=== PATIENT | male | born 1955 | race Caucasian/White ===

== ENCOUNTER 2021-05-06 19:20 | Inpatient (IN) | payer OTHER, SELFPAY ==
[~2021-05-06] VITALS: Ht 182.9 cm; Wt 73.0 kg
[2021-05-06 19:25] VITALS: BP_SYST 119
--- NOTE | 2021-05-06 20:00 | NUR ---
Placed in room 7 . Placed on cardiac nurse, blood pressure machine and pulse oximeter. To gown for exam. Side rails up. Report given to Dunia MOY.
--- NOTE | 2021-05-06 20:10 | NUR ---
PT BIB [facility] FOR COMPLAINSTS OF SOB X1 WEEK. PT WAS LIFTING HEAVY OBJECTS ONE WEEK AGO AND HAD AN EPISODE OF SOB AND IT HASNT SUBSIDED YET. PT IS ON 15L NRB NOW AND SATING AT 95%. PT I TACHYCARDIC AT 120BPM. PT HAS NOT RECIEVED A VACCINE OR A COVID TEST. PT STATES NO CP OR FEVERS FOR THE PAST WEEK. A&OX4.
--- NOTE | 2021-05-06 20:15 | NUR ---
ER at bedside examining patient.
[2021-05-06 20:19] LABS: BASOPHILS % (AUTO) 0.1 % (0.0-2.0); EOSINOPHILS # (AUTO) 0.2 K/uL (0.0-0.4); EOSINOPHILS % (AUTO) 1.8 % (0.0-4.0); HEMATOCRIT 40.1 % (36-54); LYMPHOCYTES # (AUTO) 0.3 K/uL (1.0-5.5); LYMPHOCYTES % (AUTO) 2.8 % (20.5-51.5); MEAN CORPUSCULAR HEMOGLOBIN 31 pg (27-31); MEAN CORPUSCULAR HGB CONC 35 % (32-36); MEAN CORPUSCULAR VOLUME 88 fL (79.0-98.0); MONOCYTES # (AUTO) 0.6 K/uL (0.0-1.0); MONOCYTES % (AUTO) 5.7 % (1.7-9.3); NEUTROPHILS # (AUTO) 9.8 K/uL (1.8-7.7); NEUTROPHILS % (AUTO) 89.6 % (40.0-70.0); PLATELET COUNT (AUTO) 528 K/uL (130-430); RED BLOOD CELL COUNT(AUTO) 4.55 MIL/uL (4.2-6.2); RED CELL DISTRIBUTION WIDTH 13.3 % (9.0-15.0)
[2021-05-06] MEDS ORDERED: AZITHROMYCIN 500 MG in NS 250 ML IV ONE (20:30)
[2021-05-06] MEDS ORDERED: NACL 0.9% 1,000 ML IV ONE (20:30)
[2021-05-06] MEDS ORDERED: cefTRIAXone 1 GM IVPB PREMIX 50 ML IV ONE (20:30)
[2021-05-06] MEDS ORDERED: AZITHROMYCIN 500 MG/VIAL (ZITHROMAX) IV ONE (20:36)
--- NOTE | 2021-05-06 20:45 | NUR ---
# 20 gauge angiocath placed to R FOREARM. Use of asceptic technique. Opsite placed over site. Blood return noted. Blood for lab drawn from site. Flushed with 10 cc of normal saline. No evidence of infiltration noted. Patient tolerated well.
[2021-05-06 20:50] LABS: CALCIUM 8.8 mg/dL (8.4-11.0); CREATININE 1.05 mg/dL (0.55-1.30); POTASSIUM 4.3 mmol/L (3.5-5.1)
[2021-05-06 20:56] LABS: ALBUMIN 2.2 g/dL (3.4-4.8); TOTAL BILIRUBIN 0.8 mg/dL (0.0-1.0)
[2021-05-06 21:02] LABS: PROTHROMBIN TIME 10.6 SECS (9.5-12.5)
[2021-05-06 21:15] LABS: C-REACTIVE PROTEIN QUANT 19.6 mg/dL (0-0.5)
[2021-05-06] MEDS ORDERED: DEXAMETHASONE SOD PHOSPHATE 4 MG/ML VIAL IVP ONE (21:15)
[2021-05-06] MEDS ORDERED: DEXAMETHASONE SOD PHOSPHATE 4 MG/ML VIAL ONE (21:28)
[2021-05-06] MEDS ORDERED: ENOXAPARIN SODIUM 60 MG/0.6 ML SYRINGE SUBCUT ONE (21:45)
[2021-05-06 22:36] LABS: FIBRINOGEN > 1000 mg/dL (200-400)
--- NOTE | 2021-05-06 22:55 | NUR ---
PTS MED REC DONE PTS IS FULL CODE. PTS BELONGINGS LIST COMPLETE
[2021-05-06] MEDS ORDERED: HYDROcodone/ACETAMIN 10-325 MG TAB PO PRN (23:00)
[2021-05-06] MEDS ORDERED: HYDROcodone/ACETAMIN 5-325 MG TAB (NORCO/ VICODIN) PO PRN (23:00)
[2021-05-06] MEDS ORDERED: NALOXONE HCL 0.4 MG/ML AMP (NARCAN) IVP PRN ×2 (23:00)
[2021-05-06] MEDS ORDERED: LORazepam 2 MG/ML VIAL IVP PRN (23:00)
[2021-05-06] MEDS ORDERED: ONDANSETRON HCL 4 MG/2 ML VIAL IVP PRN (23:00)
[2021-05-06] MEDS: D5/0.45 NS 1,000 ML IV SCH (23:29)
[2021-05-06] MEDS: DEXAMETHASONE SOD PHOSPHATE 10 MG/ML VIAL IVP SCH (23:30)
--- NOTE | 2021-05-07 00:30 | NUR ---
PT IS RESTING CALMLY IN BED. NO COMPLAINTS AT THIS TIME
--- NOTE | 2021-05-07 03:58 | NUR ---
PT IS AWARE OF THE SITUATION AND THE REASON FOR HIS HOLD IN THE ER. PT IS COMFORTBALE AND CALM AT THIS TIME.
--- NOTE | 2021-05-07 04:30 | NUR ---
pt awake and requested food. pt given a meal tray
[2021-05-07 04:35] LABS: BILIRUBIN,URINE NEGATIVE (NEGATIVE); BLOOD, URINE 1+ (NEGATIVE); CLARITY/URINE SL CLOUDY (CLEAR); COLOR,URINE YELLOW (YELLOW); GLUCOSE,URINE 2+ (NEGATIVE); KETONES,URINE NEGATIVE (NEGATIVE); LEUKOCYTE ESTERASE ,URINE NEGATIVE (NEGATIVE); NITRITE, URINE POSITIVE (NEGATIVE); PH,URINE 5.5 (5.0-8.0); PROTEIN URINE TRACE (NEGATIVE)
[2021-05-07 05:12] LABS: BACTERIA,URINE MANY /HPF (None Seen)
[2021-05-07 06:49] LABS: BASOPHILS % (AUTO) 0.2 % (0.0-2.0); EOSINOPHILS % (AUTO) 0.1 % (0.0-4.0); HEMATOCRIT 38.4 % (36-54); HEMOGLOBIN 13.3 g/dL (14.0-18.0); LYMPHOCYTES # (AUTO) 0.2 K/uL (1.0-5.5); LYMPHOCYTES % (AUTO) 3.3 % (20.5-51.5); MEAN CORPUSCULAR HEMOGLOBIN 31 pg (27-31); MEAN CORPUSCULAR HGB CONC 35 % (32-36); MEAN CORPUSCULAR VOLUME 89 fL (79.0-98.0); MONOCYTES # (AUTO) 0.2 K/uL (0.0-1.0); MONOCYTES % (AUTO) 2.7 % (1.7-9.3); NEUTROPHILS % (AUTO) 93.7 % (40.0-70.0); PLATELET COUNT (AUTO) 439 K/uL (130-430); RED BLOOD CELL COUNT(AUTO) 4.34 MIL/uL (4.2-6.2); RED CELL DISTRIBUTION WIDTH 13.5 % (9.0-15.0); WHITE BLOOD COUNT (AUTO) 6.4 K/uL (4.8-10.8)
--- NOTE | 2021-05-07 07:42 | NUR ---
Pt resting in bed. No signs of distress noted.02 sat 97% on 8L mask. Respirations equal and symmetrical.
[2021-05-07] MEDS: D5/0.45 NS 1,000 ML IV SCH ×2 (09:45→19:00)
--- NOTE | 2021-05-07 11:46 | NUR ---
Pt requesting urinal. No distress noted.
--- NOTE | 2021-05-07 12:11 | NUR ---
Pt resting in bed requesting a phone product safety consultant. No signs of distress noted.
--- NOTE | 2021-05-07 12:11 | NUR ---
Pt voided 250 ml kennedi color urine.
[2021-05-07] MEDS ORDERED: ENOXAPARIN SODIUM 40 MG/0.4 ML SYRINGE SUBCUT ONE (14:00)
[2021-05-07] MEDS ORDERED: IOHEXOL 350 mgI/mL, 150 ML INFUS..BTL IV ONE (14:55)
--- NOTE | 2021-05-07 15:04 | NUR ---
Pt taken to CT in stable condition. Pt on 12L mask, A&O no distress noted.
[2021-05-07 15:55] VITALS: BP_SYST 139
--- NOTE | 2021-05-07 15:55 | NUR ---
Patient will be admitted to care of Admitted to tele unit. Will go to room 125A. Belongings list completed. Complete and up to date summary report printed. SBAR report given at bedside to Shanice with opportunity for questions.
--- NOTE | 2021-05-07 16:02 | NUR ---
CONSULT ID PNEUMONIA DR CLARKE [phone] DR YEN EDGE GLUE MACHINE TENDER S/W [facility] OFFICE
--- NOTE | 2021-05-07 17:12 | NUR ---
dr london s/w with Dr Shakila MD asked about patient . stated she will not be able to see patient today as she is busy in the other hospital. asked thermospray operator to call primary to start treatment of Remdesivir
[2021-05-07 17:56] VITALS: BP_SYST 139
[2021-05-07 20:00] VITALS: BP_SYST 135
[2021-05-07] MEDS: AZITHROMYCIN 500 MG in NS 250 ML IV SCH (20:47)
--- NOTE | 2021-05-07 20:47 | NUR ---
SCHEDULED IV ANTIBIOTIC STARTED. IV SITE IN RFA IS WITHOUT ANY SIGNS OF INFILTRATION.
[2021-05-07] MEDS: cefTRIAXone 1 GM IVPB PREMIX 50 ML IV SCH (22:28)
[2021-05-07] MEDS: DEXAMETHASONE SOD PHOSPHATE 10 MG/ML VIAL IVP SCH (22:29)
[2021-05-08] VITALS: BP_SYST 126
[2021-05-08] MEDS: D5/0.45 NS 1,000 ML IV SCH ×3 (03:54→23:03)
--- NOTE | 2021-05-08 06:33 | NUR ---
PT IS RESTING QUIETLY IN BED WITHOUT ANY ACUTE DISTRESS NOTED. ALL PT'S NEEDS WERE ATTENDED TO. WILL ENDORSE TO DAY SHIFT NURSE.
[2021-05-08 06:51] LABS: BASOPHILS % (AUTO) 0.2 % (0.0-2.0); HEMATOCRIT 34.8 % (36-54); HEMOGLOBIN 11.9 g/dL (14.0-18.0); LYMPHOCYTES # (AUTO) 0.3 K/uL (1.0-5.5); LYMPHOCYTES % (AUTO) 2.3 % (20.5-51.5); MEAN CORPUSCULAR HEMOGLOBIN 30 pg (27-31); MEAN CORPUSCULAR HGB CONC 34 % (32-36); MEAN CORPUSCULAR VOLUME 88 fL (79.0-98.0); MONOCYTES # (AUTO) 0.4 K/uL (0.0-1.0); MONOCYTES % (AUTO) 3.1 % (1.7-9.3); NEUTROPHILS # (AUTO) 12.5 K/uL (1.8-7.7); NEUTROPHILS % (AUTO) 94.4 % (40.0-70.0); PLATELET COUNT (AUTO) 484 K/uL (130-430); RED BLOOD CELL COUNT(AUTO) 3.94 MIL/uL (4.2-6.2); RED CELL DISTRIBUTION WIDTH 13.5 % (9.0-15.0); WHITE BLOOD COUNT (AUTO) 13.2 K/uL (4.8-10.8)
--- NOTE | 2021-05-08 07:02 | NUR ---
DR. KAISER HERE MAKING ROUNDS. HE SPOKE WITH YAMILET IN THE LAB REGARDING CANCELLED HIV RAPID SCREEN.
[2021-05-08 07:33] LABS: C-REACTIVE PROTEIN QUANT 8.3 mg/dL (0-0.5); CALCIUM 8.9 mg/dL (8.4-11.0); CREATININE 0.73 mg/dL (0.55-1.30); POTASSIUM 4.4 mmol/L (3.5-5.1)
[2021-05-08 08:00] VITALS: BP_SYST 142
--- NOTE | 2021-05-08 08:00 | NUR ---
OPENING NOTES AWAKE, ALERT AND ORIENTED. DENIES ANY PAIN. ON 12 LITERS OF OXYGEN VIA SIMPLE MASK. NO SIGN OF DISTRESS. IV FLUIDS INFUSING WELL. ON BEDREST, PATIENT SAID HIS LEGS FEEL WEAK. SERVED WITH BREAKFAST. FALL AND SAFETY CHECKS IN PLACE. CALL LIGHT WITHIN REACH. WILL MONITOR.
[2021-05-08] MEDS: ENOXAPARIN SODIUM 40 MG/0.4 ML SYRINGE SUBCUT SCH (08:14)
--- NOTE | 2021-05-08 10:02 | NUR ---
Nutrition Update Travis Scale 16 noted. Pt admitted for pneumonia. Diet: cardiac BMI: 21.7 kg/m2 RD to follow per nutrition care standards.
[2021-05-08 11:03] LABS: ERYTHROCYTE SEDIMENTATION RATE 97 MM/HR (0-15)
--- NOTE | 2021-05-08 11:15 | NUR ---
ROUNDS RESTING. STILL ON 12 LITERS OF SIMPLE MASK. NO SIGN OF DISTRESS. FALL AND SAFETY CHECKS DONE. CALL LIGHT WITHIN REACH. WILL MONITOR.
[2021-05-08 12:06] VITALS: BP_SYST 126
--- NOTE | 2021-05-08 14:00 | NUR ---
ROUNDS RESTING. AWARE THAT PCR AND HIV RESULTS ARE STILL PENDING.
[2021-05-08 16:15] VITALS: BP_SYST 145
--- NOTE | 2021-05-08 18:33 | NUR ---
CLOSING NOTES RESTING. NO SIGN OF DISTRESS. ALL NEEDS MET. FALL AND SAFETY CHECKS DONE. CALL LIGHT WITHIN REACH. WILL ENDORSE TO NIGHT NURSE.
--- NOTE | 2021-05-08 19:02 | NUR ---
OPENING NOTES PATIENT RESTING, NO SIGNS OF ACUTE RESPIRATORY DISTRESS NOTED. CALL LIGHT WITHIN REACH, BED ALARM REFUSED, PATIENT DEMONSTRATES PROPER CALL LIGHT USAGE AND BED AT LOWEST POSITION, BED LOCKED. PLAN OF CARE DISCUSSED WITH PATIENT. URINAL EMPTIED AND AT BEDSIDE. SAFETY, RESPIRATORY, ASPIRATION, FALL, AND ISOLATION PRECAUTIONS IN PLACE. WILL CONTINUE TO MONITOR.
[2021-05-08 20:00] VITALS: BP_SYST 119
[2021-05-08] MEDS: cefTRIAXone 1 GM IVPB PREMIX 50 ML IV SCH (22:02)
[2021-05-08] MEDS: AZITHROMYCIN 500 MG in NS 250 ML IV SCH (23:02)
[2021-05-08] MEDS: DEXAMETHASONE SOD PHOSPHATE 10 MG/ML VIAL IVP SCH (23:03)
[2021-05-09 01:30] VITALS: BP_SYST 128
--- NOTE | 2021-05-09 03:59 | NUR ---
PATIENT RESTING, EYES CLOSED, NO SIGNS OF RESPIRATORY DISTRESS NOTED. WILL CONTINUE TO MONITOR.
--- NOTE | 2021-05-09 07:03 | NUR ---
CLOSING NOTES PATIENT RESTING, NO SIGNS OF ACUTE RESPIRATORY DISTRESS NOTED. CALL LIGHT WITHIN REACH, BED ALARM REFUSED, PATIENT DEMONSTRATED PROPER CALL LIGHT USAGE AND BED AT LOWEST POSITION, BED LOCKED. URINAL EMPTIED. SAFETY, RESPIRATORY, ASPIRATION, FALL, AND ISOLATION PRECAUTIONS IN PLACE THROUGHOUT SHIFT. ALL NEEDS MET THROUGHOUT SHIFT. WILL ENDORSE CARE TO ONCOMING SHIFT.
[2021-05-09 07:06] LABS: BASOPHILS % (AUTO) 0.2 % (0.0-2.0); EOSINOPHILS % (AUTO) 0.1 % (0.0-4.0); HEMOGLOBIN 12.7 g/dL (14.0-18.0); LYMPHOCYTES # (AUTO) 0.2 K/uL (1.0-5.5); LYMPHOCYTES % (AUTO) 2.5 % (20.5-51.5); MEAN CORPUSCULAR HEMOGLOBIN 30 pg (27-31); MEAN CORPUSCULAR HGB CONC 34 % (32-36); MEAN CORPUSCULAR VOLUME 89 fL (79.0-98.0); MONOCYTES # (AUTO) 0.3 K/uL (0.0-1.0); MONOCYTES % (AUTO) 2.7 % (1.7-9.3); NEUTROPHILS # (AUTO) 9.2 K/uL (1.8-7.7); NEUTROPHILS % (AUTO) 94.5 % (40.0-70.0); PLATELET COUNT (AUTO) 522 K/uL (130-430); RED BLOOD CELL COUNT(AUTO) 4.17 MIL/uL (4.2-6.2); RED CELL DISTRIBUTION WIDTH 13.3 % (9.0-15.0); WHITE BLOOD COUNT (AUTO) 9.7 K/uL (4.8-10.8)
[2021-05-09 07:33] LABS: ALBUMIN 1.9 g/dL (3.4-4.8); C-REACTIVE PROTEIN QUANT 3.6 mg/dL (0-0.5); CREATININE 0.89 mg/dL (0.55-1.30); POTASSIUM 4.9 mmol/L (3.5-5.1); TOTAL BILIRUBIN 0.3 mg/dL (0.0-1.0)
--- NOTE | 2021-05-09 08:00 | NUR ---
OPENING NOTES: PATIENT RESTING IN BED. BREATHING EVEN AND NON LABORED TO O2 AT 12 L/MASK. IV PATENT AND INFUSING WELL. FALL, SAFETY AND ASPIRATION PRECAUTION REINFORCED. CALL LIGHT WITHIN REACH.
[2021-05-09] MEDS: ENOXAPARIN SODIUM 40 MG/0.4 ML SYRINGE SUBCUT SCH (09:29)
[2021-05-09] MEDS: D5/0.45 NS 1,000 ML IV SCH ×2 (09:30→21:00)
[2021-05-09 09:40] VITALS: BP_SYST 118
[2021-05-09 11:49] LABS: ERYTHROCYTE SEDIMENTATION RATE 85 MM/HR (0-15)
--- NOTE | 2021-05-09 12:07 | NUR ---
RN NOTES: PATIENT RESTING IN BED. NO SIGNS OF ACUTE DISTRESS NOTED. FALL AND SAFETY MEASURES RENDERED. CALL LIGHT WITHIN REACH.
[2021-05-09 12:56] VITALS: BP_SYST 121
--- NOTE | 2021-05-09 15:05 | NUR ---
ID MD DR CLARKE WAS CALLED, RE: TO NOTIFY, PCR RESULT CAME OUT POSITIVE. SPOKE TO CARLO.
--- NOTE | 2021-05-09 16:51 | NUR ---
SPOKE TO DR. PASCAL: SPOKE TO DR. PASCAL AND RELAYED THE COVID PCR POSITIVE RESULT. PER DR. PASCAL HE WILL SEE THE PATIENT.
--- NOTE | 2021-05-09 16:57 | NUR ---
Dietitian Recommendations * Recommend cardiac diet w/ Ensure Enlive TID (ONS provides 700 kcal/day, 40 gm protein/day) * Encourage increase PO intakes LP, RD Please refer to Nutrition Assessment for details. Addendum: 05/09/21 at [address] Amended: Links added.
[2021-05-09 17:09] VITALS: BP_SYST 126
[2021-05-09] MEDS: CHOLECALCIFEROL (VITAMIN D3) 5,000 UNIT TABLET PO SCH (17:45)
[2021-05-09 18:20] VITALS: BP_SYST 126
--- NOTE | 2021-05-09 18:58 | NUR ---
CLOSING NOTES: PATIENT EATING DINNER. NO SIGNS OF ACUTE DISTRESS NOTED. IV PATENT AND INFUSING WELL. FALL AND SAFETY MEASURES RENDERED. CALL LIGHT WITHIN REACH.
[2021-05-09 20:00] VITALS: BP_SYST 125
[2021-05-09] MEDS: ASCORBIC ACID 500 MG TABLET PO SCH (20:42)
[2021-05-09] MEDS: cefTRIAXone 1 GM IVPB PREMIX 50 ML IV SCH (20:42)
--- NOTE | 2021-05-09 23:11 | NUR ---
PATIENT STATES HE FEELS BETTER THAN YESTERDAY, NO SIGNS OF DISTRESS NOTED. NO OTHER NEEDS AT THIS TIME. WILL CONTINUE TO MONITOR.
[2021-05-09] MEDS: AZITHROMYCIN 500 MG in NS 250 ML IV SCH (23:41)
[2021-05-09] MEDS: DEXAMETHASONE SOD PHOSPHATE 10 MG/ML VIAL IVP SCH (23:42)
[2021-05-10] VITALS: BP_SYST 130
[2021-05-10 06:29] LABS: BASOPHILS % (AUTO) 0.1 % (0.0-2.0); EOSINOPHILS % (AUTO) 0.2 % (0.0-4.0); LYMPHOCYTES # (AUTO) 0.3 K/uL (1.0-5.5); LYMPHOCYTES % (AUTO) 3.4 % (20.5-51.5); MEAN CORPUSCULAR HEMOGLOBIN 31 pg (27-31); MEAN CORPUSCULAR HGB CONC 34 % (32-36); MEAN CORPUSCULAR VOLUME 89 fL (79.0-98.0); MONOCYTES # (AUTO) 0.2 K/uL (0.0-1.0); MONOCYTES % (AUTO) 2.5 % (1.7-9.3); NEUTROPHILS # (AUTO) 8.9 K/uL (1.8-7.7); NEUTROPHILS % (AUTO) 93.8 % (40.0-70.0); PLATELET COUNT (AUTO) 542 K/uL (130-430); RED BLOOD CELL COUNT(AUTO) 4.26 MIL/uL (4.2-6.2); RED CELL DISTRIBUTION WIDTH 13.2 % (9.0-15.0); WHITE BLOOD COUNT (AUTO) 9.4 K/uL (4.8-10.8)
[2021-05-10 06:34] LABS: C-REACTIVE PROTEIN QUANT 1.9 mg/dL (0-0.5); CREATININE 0.84 mg/dL (0.55-1.30); POTASSIUM 4.6 mmol/L (3.5-5.1)
--- NOTE | 2021-05-10 07:10 | NUR ---
CLOSING NOTES PATIENT RESTING, NO SIGNS OF ACUTE RESPIRATORY DISTRESS NOTED, TURNED ON SIDE. CALL LIGHT WITHIN REACH, BED ALARM OFF PER PATIENT REQUEST, PATIENT DEMONSTRATED PROPER CALL LIGHT USAGE AND BED AT LOWEST POSITION, BED LOCKED. SAFETY, RESPIRATORY, ASPIRATION, FALL, AND ISOLATION PRECAUTIONS IN PLACE THROUGHOUT SHIFT. ALL NEEDS MET THROUGHOUT SHIFT. WILL ENDORSE CARE TO ONCOMING SHIFT.
[2021-05-10 08:00] VITALS: BP_SYST 142
--- NOTE | 2021-05-10 08:00 | NUR ---
OPENING NOTES AWAKE, ALERT AND ORIENTED. DENIES ANY PAIN. ON 12 LITERS OF OXYGEN VIA SIMPLE MASK. NO SIGN OF DISTRESS. IV FLUIDS INFUSING WELL. ON BEDREST, PATIENT SAID HIS LEGS FEEL WEAK. FALL AND SAFETY CHECKS IN PLACE. CALL LIGHT WITHIN REACH. WILL MONITOR.
[2021-05-10] MEDS: D5/0.45 NS 1,000 ML IV SCH ×2 (08:16→17:13)
[2021-05-10] MEDS: CHOLECALCIFEROL (VITAMIN D3) 5,000 UNIT TABLET PO SCH (08:17)
[2021-05-10] MEDS: ASCORBIC ACID 500 MG TABLET PO SCH ×2 (08:17→21:12)
[2021-05-10] MEDS: ENOXAPARIN SODIUM 40 MG/0.4 ML SYRINGE SUBCUT SCH (08:19)
[2021-05-10] MEDS: BUDESONIDE 0.5 MG/2 ML AMPUL.NEB INH SCH ×2 (09:00→21:44)
--- NOTE | 2021-05-10 11:00 | NUR ---
REMDESIVIR REMDESIVIR IV STARTED. EDUCATED PATIENT ON USE AND SIDE EFFECT, VERBALIZED UNDERSTANDING.
[2021-05-10 12:20] VITALS: BP_SYST 120
[2021-05-10 12:22] LABS: ERYTHROCYTE SEDIMENTATION RATE 82 MM/HR (0-15)
[2021-05-10] MEDS: BARICITINIB -Non-Formulary 2 MG TABLET PO SCH (14:54)
--- NOTE | 2021-05-10 15:00 | NUR ---
BARICITINIB BARICITINIB PO STARTED. EDUCATED PATIENT ON USE AND SIDE EFFECT, VERBALIZED UNDERSTANDING.
[2021-05-10 16:14] VITALS: BP_SYST 140
--- NOTE | 2021-05-10 18:50 | NUR ---
CLOSING NOTES RESTING. IV FLUIDS STILL INFUSING WELL. NO OTHER COMPLAINS. ALL NEEDS MET. FALL AND SAFETY CHECKS DONE. CALL LIGHT WITHIN REACH. WILL ENDORSE TO NIGHT NURSE.
[2021-05-10 20:00] VITALS: BP_SYST 134
[2021-05-10] MEDS: AZITHROMYCIN 500 MG in NS 250 ML IV SCH (21:13)
[2021-05-10] MEDS: cefTRIAXone 1 GM IVPB PREMIX 50 ML IV SCH (22:52)
[2021-05-10] MEDS: DEXAMETHASONE SOD PHOSPHATE 10 MG/ML VIAL IVP SCH (22:52)
[2021-05-11] VITALS: BP_SYST 138
[2021-05-11] MEDS: D5/0.45 NS 1,000 ML IV SCH ×3 (05:13→23:00)
--- NOTE | 2021-05-11 06:51 | NUR ---
PT IS AWAKE AND LYING COMFORTABLY IN BED. ALL PT'S NEEDS WERE ATTENDED TO THIS SHIFT. IVF IS INFUSING WELL IN RFA. FALL, DROPLET ISOLATION AND SAFETY PRECAUTIONS ARE IN PLACE. WILL ENDORSE TO DAY SHIFT NURSE.
[2021-05-11 07:39] LABS: BASOPHILS % (AUTO) 0.1 % (0.0-2.0); EOSINOPHILS % (AUTO) 0.1 % (0.0-4.0); HEMATOCRIT 38.1 % (36-54); LYMPHOCYTES # (AUTO) 0.5 K/uL (1.0-5.5); LYMPHOCYTES % (AUTO) 4.5 % (20.5-51.5); MEAN CORPUSCULAR HEMOGLOBIN 30 pg (27-31); MEAN CORPUSCULAR HGB CONC 34 % (32-36); MEAN CORPUSCULAR VOLUME 88 fL (79.0-98.0); MONOCYTES # (AUTO) 0.2 K/uL (0.0-1.0); MONOCYTES % (AUTO) 2.2 % (1.7-9.3); NEUTROPHILS # (AUTO) 9.8 K/uL (1.8-7.7); NEUTROPHILS % (AUTO) 93.1 % (40.0-70.0); PLATELET COUNT (AUTO) 532 K/uL (130-430); RED BLOOD CELL COUNT(AUTO) 4.31 MIL/uL (4.2-6.2); RED CELL DISTRIBUTION WIDTH 13.4 % (9.0-15.0); WHITE BLOOD COUNT (AUTO) 10.6 K/uL (4.8-10.8)
[2021-05-11 08:00] VITALS: BP_SYST 135
--- NOTE | 2021-05-11 08:00 | NUR ---
OPENING NOTES AWAKE, ALERT AND ORIENTED. DENIES ANY PAIN. ON 12 LITERS OF OXYGEN VIA SIMPLE MASK. NO SIGN OF DISTRESS. IV FLUIDS INFUSING WELL. COMPLAINED OF MILD HEADACHE, WILL MEDICATE. FALL AND SAFETY CHECKS IN PLACE. CALL LIGHT WITHIN REACH. WILL MONITOR.
[2021-05-11] MEDS: ASCORBIC ACID 500 MG TABLET PO SCH ×2 (08:39→20:54)
[2021-05-11] MEDS: CHOLECALCIFEROL (VITAMIN D3) 5,000 UNIT TABLET PO SCH (08:39)
[2021-05-11] MEDS: ACETAMINOPHEN 325 MG TABLET PO PRN (08:40)
[2021-05-11] MEDS: ENOXAPARIN SODIUM 40 MG/0.4 ML SYRINGE SUBCUT SCH (08:41)
[2021-05-11] MEDS: BARICITINIB -Non-Formulary 2 MG TABLET PO SCH (08:41)
[2021-05-11 10:03] LABS: CALCIUM 9.1 mg/dL (8.4-11.0); CREATININE 0.87 mg/dL (0.55-1.30); POTASSIUM 4.9 mmol/L (3.5-5.1)
[2021-05-11 10:32] LABS: C-REACTIVE PROTEIN QUANT 0.9 mg/dL (0-0.5)
--- NOTE | 2021-05-11 11:00 | NUR ---
ROUNDS RESTING. PAIN IS CONTROLLED AT THIS TIME. SAFETY CHECKS DONE. CALL LIGHT WITHIN REACH.
[2021-05-11 12:06] VITALS: BP_SYST 139
--- NOTE | 2021-05-11 14:45 | NUR ---
ROUNDS IV FLUIDS CHANGED. NO OTHER COMPLAINS. SAFETY CHECKS DONE. WILL MONITOR.
[2021-05-11 15:03] LABS: ERYTHROCYTE SEDIMENTATION RATE 80 MM/HR (0-15)
[2021-05-11 16:10] VITALS: BP_SYST 126
--- NOTE | 2021-05-11 18:40 | NUR ---
CLOSING NOTES RESTING. IV FLUIDS INFUSING WELL. NO SIGN OF DISTRESS. ALL NEEDS MET. FALL AND SAFETY CHECKS DONE. CALL LIGHT WITHIN REACH. WILL ENDORSE TO NIGHT NURSE.
[2021-05-11 20:00] VITALS: BP_SYST 127
[2021-05-11] MEDS: AZITHROMYCIN 500 MG in NS 250 ML IV SCH (20:54)
--- NOTE | 2021-05-11 21:15 | NUR ---
IV SITE IN RFA LEAKING AND ANGIOCATH WAS REMOVED INTACT, FOLLOWED BY PRESSURE DRESSING OVER THE SITE. NEW IV LINE WAS RESTARTED IN RFA WITH ANGIOCATH 20G. PT TOLERATED IV RESTART WELL.
[2021-05-11] MEDS: cefTRIAXone 1 GM IVPB PREMIX 50 ML IV SCH (23:02)
[2021-05-11] MEDS: DEXAMETHASONE SOD PHOSPHATE 10 MG/ML VIAL IVP SCH (23:03)
[2021-05-11] MEDS: BUDESONIDE 0.5 MG/2 ML AMPUL.NEB INH SCH (23:17)
[2021-05-12 00:45] VITALS: BP_SYST 123
[2021-05-12] MEDS: D5/0.45 NS 1,000 ML IV SCH ×2 (05:52→21:39)
[2021-05-12 07:20] LABS: EOSINOPHILS % (AUTO) 0.1 % (0.0-4.0); HEMATOCRIT 38.1 % (36-54); LYMPHOCYTES # (AUTO) 0.5 K/uL (1.0-5.5); MEAN CORPUSCULAR HEMOGLOBIN 30 pg (27-31); MEAN CORPUSCULAR HGB CONC 34 % (32-36); MEAN CORPUSCULAR VOLUME 88 fL (79.0-98.0); MONOCYTES # (AUTO) 0.2 K/uL (0.0-1.0); MONOCYTES % (AUTO) 1.6 % (1.7-9.3); NEUTROPHILS # (AUTO) 14.7 K/uL (1.8-7.7); NEUTROPHILS % (AUTO) 95.3 % (40.0-70.0); PLATELET COUNT (AUTO) 554 K/uL (130-430); RED BLOOD CELL COUNT(AUTO) 4.31 MIL/uL (4.2-6.2); RED CELL DISTRIBUTION WIDTH 13.3 % (9.0-15.0); WHITE BLOOD COUNT (AUTO) 15.5 K/uL (4.8-10.8)
--- NOTE | 2021-05-12 08:00 | NUR ---
am notes pt in bed .a/ox4. denies any pain or sob. o2 8 l simple mask 93%. not in res distress.ivf infusing well. no s/s of infiltration noted. res even and unlabored. hob elevated. safety/fall precautions in place. .bed locked and in low position.call light within reach. needs attended. kept comfortable. will continue to monitor
[2021-05-12 08:29] LABS: ALBUMIN 2.1 g/dL (3.4-4.8); C-REACTIVE PROTEIN QUANT 0.4 mg/dL (0-0.5); CALCIUM 8.9 mg/dL (8.4-11.0); CREATININE 0.92 mg/dL (0.55-1.30); POTASSIUM 4.6 mmol/L (3.5-5.1); TOTAL BILIRUBIN 0.3 mg/dL (0.0-1.0)
[2021-05-12 08:30] VITALS: BP_SYST 144
[2021-05-12] MEDS: ASCORBIC ACID 500 MG TABLET PO SCH ×2 (09:00→21:39)
[2021-05-12] MEDS: BUDESONIDE 0.5 MG/2 ML AMPUL.NEB INH SCH (09:00)
[2021-05-12] MEDS: CHOLECALCIFEROL (VITAMIN D3) 5,000 UNIT TABLET PO SCH (10:18)
[2021-05-12] MEDS: BARICITINIB -Non-Formulary 2 MG TABLET PO SCH (10:20)
[2021-05-12] MEDS: ENOXAPARIN SODIUM 40 MG/0.4 ML SYRINGE SUBCUT SCH (10:22)
[2021-05-12 10:53] LABS: ERYTHROCYTE SEDIMENTATION RATE 72 MM/HR (0-15)
--- NOTE | 2021-05-12 12:56 | NUR ---
rounds/IS pt stable .eating lunch. doing incentive spirometer 1500. encouraged deep breathing. o2 st 97% on 8 l simple mask.no res distress noted. needs attended
[2021-05-12 14:43] VITALS: BP_SYST 122
[2021-05-12 16:00] VITALS: BP_SYST 142
[2021-05-12 16:45] VITALS: BP_SYST 122
--- NOTE | 2021-05-12 19:04 | NUR ---
closing notes pt in bed .a/ox4. denies any pain or sob. o2 8 l simple mask 93-94%%. not in res distress.ivf infusing well. no s/s of infiltration noted. res even and unlabored. hob elevated. safety/fall precautions in place. .bed locked and in low position.call light within reach. needs attended. kept comfortable. will endorse to night nurse
[2021-05-12 20:00] VITALS: BP_SYST 122
[2021-05-12] MEDS: cefTRIAXone 1 GM IVPB PREMIX 50 ML IV SCH (21:39)
[2021-05-12] MEDS: DEXAMETHASONE SOD PHOSPHATE 10 MG/ML VIAL IVP SCH (23:50)
[2021-05-13 00:51] VITALS: BP_SYST 122
--- NOTE | 2021-05-13 07:15 | NUR ---
CLOSING NOTES PATIENT RESTING, NO SIGNS OF ACUTE RESPIRATORY DISTRESS NOTED. CALL LIGHT WITHIN REACH, BED ALARM REFUSED, PATIENT DEMONSTRATED PROPER CALL LIGHT USAGE AND BED AT LOWEST POSITION, BED LOCKED. SAFETY, RESPIRATORY, ASPIRATION, FALL, AND ISOLATION PRECAUTIONS IN PLACE THROUGHOUT SHIFT. WILL ENDORSE CARE TO ONCOMING SHIFT.
[2021-05-13 07:36] LABS: CALCIUM 8.7 mg/dL (8.4-11.0); CREATININE 0.76 mg/dL (0.55-1.30); POTASSIUM 4.5 mmol/L (3.5-5.1)
[2021-05-13 07:56] LABS: BASOPHILS % (AUTO) 0.1 % (0.0-2.0); EOSINOPHILS % (AUTO) 0.2 % (0.0-4.0); HEMATOCRIT 36.5 % (36-54); HEMOGLOBIN 12.7 g/dL (14.0-18.0); LYMPHOCYTES # (AUTO) 0.4 K/uL (1.0-5.5); LYMPHOCYTES % (AUTO) 3.6 % (20.5-51.5); MEAN CORPUSCULAR HEMOGLOBIN 31 pg (27-31); MEAN CORPUSCULAR HGB CONC 35 % (32-36); MEAN CORPUSCULAR VOLUME 88 fL (79.0-98.0); MONOCYTES # (AUTO) 0.3 K/uL (0.0-1.0); MONOCYTES % (AUTO) 2.2 % (1.7-9.3); NEUTROPHILS % (AUTO) 93.9 % (40.0-70.0); PLATELET COUNT (AUTO) 499 K/uL (130-430); RED BLOOD CELL COUNT(AUTO) 4.14 MIL/uL (4.2-6.2); RED CELL DISTRIBUTION WIDTH 13.1 % (9.0-15.0); WHITE BLOOD COUNT (AUTO) 11.7 K/uL (4.8-10.8)
[2021-05-13 07:58] LABS: C-REACTIVE PROTEIN QUANT 0.2 mg/dL (0-0.5)
--- NOTE | 2021-05-13 08:00 | NUR ---
OPENING NOTES AWAKE, ALERT AND ORIENTED. DENIES ANY PAIN. NO SIGN OF SHORTNESS OF BREATH. ON 8 LITERS OF OXYGEN VIA MASK. IV FLUIDS INFUSING WELL. FALL AND SAFETY CHECKS IN PLACE. CALL LIGHT WITHIN REACH. WILL MONITOR.
[2021-05-13] MEDS: D5/0.45 NS 1,000 ML IV SCH ×2 (08:22→18:05)
[2021-05-13] MEDS: BARICITINIB -Non-Formulary 2 MG TABLET PO SCH (08:22)
[2021-05-13] MEDS: CHOLECALCIFEROL (VITAMIN D3) 5,000 UNIT TABLET PO SCH (08:23)
[2021-05-13] MEDS: ASCORBIC ACID 500 MG TABLET PO SCH ×2 (08:23→20:21)
[2021-05-13 08:28] VITALS: BP_SYST 132
[2021-05-13] MEDS: BUDESONIDE 0.5 MG/2 ML AMPUL.NEB INH SCH ×2 (09:00→21:00)
--- NOTE | 2021-05-13 10:30 | NUR ---
ROUNDS NO COMPLAINS AT THIS TIME. NEEDS ATTENDED. CALL LIGHT WITHIN REACH.
[2021-05-13 12:00] VITALS: BP_SYST 130
[2021-05-13] MEDS: ENOXAPARIN SODIUM 40 MG/0.4 ML SYRINGE SUBCUT SCH (12:15)
[2021-05-13 12:21] LABS: ERYTHROCYTE SEDIMENTATION RATE 48 MM/HR (0-15)
[2021-05-13 16:00] VITALS: BP_SYST 131
--- NOTE | 2021-05-13 16:37 | NUR ---
ROUNDS RESTING. PATIENT WANTS TO GO HOME. EXPLAINED NEED FOR HOSPITALIZATION. WANTS TO TALK TO MD. NEEDS ATTENDED. CALL AND SAFETY CHECKS DONE. WILL MONITOR.
--- NOTE | 2021-05-13 18:52 | NUR ---
CLOSING NOTES RESTING. STILL ON OXYGEN VIA MASK AT 8 LITERS. ALL NEEDS MET. FALL AND SAFETY CHECKS DONE. WILL ENDORSE TO NIGHT NURSE.
[2021-05-13] MEDS: cefTRIAXone 1 GM IVPB PREMIX 50 ML IV SCH (20:22)
--- NOTE | 2021-05-13 20:30 | NUR ---
RN ROUNDS Patient awake, sitting up in bed, aox4, no sob noted, on 02 4L NC, vital signs stable. Patient denies any pain or discomfort at this time, IV line to right forearm intact and patent, IVF continues to infuse, due medications administered, educated on use and side effects of medication, verbalized understanding, fall and isolation precautions in place, oriented to use call light for nurse assistance.
[2021-05-13 20:40] VITALS: BP_SYST 129
[2021-05-13] MEDS: DEXAMETHASONE SOD PHOSPHATE 10 MG/ML VIAL IVP SCH (23:14)
[2021-05-14 00:18] VITALS: BP_SYST 130
--- NOTE | 2021-05-14 00:30 | NUR ---
RN ROUNDS Patient resting quietly in bed, remains on 02 4L NC, no sob noted, vital signs stable, call light within reach, safety and isolation precautions in place.
[2021-05-14] MEDS: D5/0.45 NS 1,000 ML IV SCH ×3 (01:48→17:29)
--- NOTE | 2021-05-14 06:04 | NUR ---
RN ROUNDS Patient resting quietly in bed, remains on 02 4L NC, denies any pain or discomfort at this time, IV line intact and patent, IVF continues to infuse, patient needs attended through out the shift, safety and isolation precautions maintained.
[2021-05-14 07:29] LABS: BASOPHILS % (AUTO) 0.1 % (0.0-2.0); HEMATOCRIT 38.1 % (36-54); HEMOGLOBIN 13.2 g/dL (14.0-18.0); LYMPHOCYTES # (AUTO) 0.4 K/uL (1.0-5.5); LYMPHOCYTES % (AUTO) 3.8 % (20.5-51.5); MEAN CORPUSCULAR HEMOGLOBIN 30 pg (27-31); MEAN CORPUSCULAR HGB CONC 35 % (32-36); MEAN CORPUSCULAR VOLUME 88 fL (79.0-98.0); MONOCYTES # (AUTO) 0.2 K/uL (0.0-1.0); MONOCYTES % (AUTO) 1.4 % (1.7-9.3); NEUTROPHILS # (AUTO) 10.2 K/uL (1.8-7.7); NEUTROPHILS % (AUTO) 94.7 % (40.0-70.0); PLATELET COUNT (AUTO) 516 K/uL (130-430); RED BLOOD CELL COUNT(AUTO) 4.33 MIL/uL (4.2-6.2); RED CELL DISTRIBUTION WIDTH 13.3 % (9.0-15.0); WHITE BLOOD COUNT (AUTO) 10.8 K/uL (4.8-10.8)
[2021-05-14 08:00] VITALS: BP_SYST 106
--- NOTE | 2021-05-14 08:00 | NUR ---
Opening note Patient is resting in bed A&Ox4 no complaint of pain or discomfort, no signs or symptoms of respiratory distress, IV is infusing no signs or symptoms of infiltration. Educated patient on plan of care, patient verbalized understanding. Bed is in lowest postion call light within reach, droplet, fall and aspiration precautions are in place. Will continue to monitor.
[2021-05-14 08:51] LABS: ERYTHROCYTE SEDIMENTATION RATE 41 MM/HR (0-15)
[2021-05-14] MEDS: BARICITINIB -Non-Formulary 2 MG TABLET PO SCH (09:00)
[2021-05-14] MEDS: BUDESONIDE 0.5 MG/2 ML AMPUL.NEB INH SCH ×2 (09:00→21:00)
[2021-05-14] MEDS: ACETAMINOPHEN 325 MG TABLET PO PRN ×2 (09:13→20:33)
[2021-05-14] MEDS: ASCORBIC ACID 500 MG TABLET PO SCH ×2 (09:13→20:33)
[2021-05-14] MEDS: CHOLECALCIFEROL (VITAMIN D3) 5,000 UNIT TABLET PO SCH (09:13)
[2021-05-14] MEDS: ENOXAPARIN SODIUM 40 MG/0.4 ML SYRINGE SUBCUT SCH (09:13)
[2021-05-14 11:01] LABS: ALANINE AMINOTRANSFERASE 107 U/L (12-78); ANION GAP 5 (5-15); ASPARTATE AMINOTRANSFERASE 38 U/L (10-37); CALCIUM 8.8 mg/dL (8.4-11.0); CHLORIDE 103 mmol/L (98-107); CREATININE 0.87 mg/dL (0.55-1.30); GFR AFRICAN AMERICAN 113 mL/min (>90); GLUCOSE 135 mg/dL (70-99); POTASSIUM 4.6 mmol/L (3.5-5.1); SODIUM SERUM 135 mmol/L (136-145); TOTAL BILIRUBIN 0.2 mg/dL (0.0-1.0); UREA NITROGEN, BLOOD 22 mg/dL (8-21)
[2021-05-14 11:02] LABS: ALBUMIN 2.5 g/dL (3.4-4.8)
[2021-05-14 14:39] LABS: C-REACTIVE PROTEIN QUANT < 0.2 mg/dL (0-0.5)
--- NOTE | 2021-05-14 15:42 | NUR ---
Nutrition F/U Admitting Diagnosis: Pneumonia Medical History Comment: PMH: COPD per physician notes Pt also found w/ sepsis, acute respiratory failure, COVID-19, COPD, leukocytosis, possible UTI, hypoalbuminemia per physician notes SARS-CoV-2 Ag (Rapid) Negative 05/06 & (PCR) Positive 05/06 Subjective Information: Pt remains in COVID Isolation and RD bedside visit has been deferred. RD placed phone call to pt's room, but no response x 2 attempts. Per EMR review, pt has been improving clinically and continues to received steroids and antibiotics. Pulmonology noted pt w/ improved SOB, currently on 4L NC, abdomen is soft and nondistended w/ active bowel sounds, BM 05/11 x1, Travis scale: 19. No skin issues documented. PO intake records show pt consumes 75-100% of meals delivered and is likely meeting adequate nutrition. Current diet and ONS remains appropriate. Current Diet Order/Nutrition Support: Cardiac, Ensure Enlive BID Pertinent Medications decadron, remdesivir, zinc, VITD, Lovenox, Zofran Pertinent Labs 05/14 Na 135L, BG 135H, BUN 22H Height (Feet) 6 feet Height (Inches) 0.00 inches Weight (Pounds) 161 pounds Weight (Calculated Kilograms) 73.556590 kilograms Patient Weight 73.028 kg Body Mass Index 21.83 kg/m2 [employer]/Adjusted Body Weight IBW: 178#/81 kg Weight Status Underweight Estimated Energy Expenditure (kcals/day) 0964-0931 kcal/day (30-35 kcal/kg CBW d/t acute state) Estimated Protein Required (g/day) 88-110 gm/day (1.2-1.5 gm/kg CBW d/t acute state) Estimated Fluid Required (l/day) 2.2-2.6 L/day (1 ml/kcal/day for maintenance) Problem/Etiology/Signs/Symptoms Increased nutritional needs related to metabolic demands as evidenced by estimated nutritional requirements for acute state. (*ongoing) Altered nutrition related labs r/t medication interaction AEB elevated BG, steroid. (*new) Expected Outcomes/Goals - Monitor appetite and PO intakes w/ goal of pt meeting at least 75% of estimated nutritional needs, labs trending WNL, normal GI function, and skin integrity/wt maintenance Dietitian Recommendations * Recommend continue cardiac diet w/ Ensure Enlive TID (ONS provides 700 kcal/day, 40 gm protein/day) * Consider CCHO diet if BG continues to trend up. Follow Up Low Risk: F/U in 7 days
--- NOTE | 2021-05-14 15:46 | NUR ---
Dietitian Recommendations * Recommend continue cardiac diet w/ Ensure Enlive TID (ONS provides 700 kcal/day, 40 gm protein/day) * Consider CCHO diet if BG continues to trend up. Please see nutrition f/u for details. SELIN, MELIDA
[2021-05-14 16:00] VITALS: BP_SYST 125
[2021-05-14 19:30] VITALS: BP_SYST 130; BP_SYST 139
--- NOTE | 2021-05-14 19:30 | NUR ---
OPENING NOTE PATIENT IS AWAKE ALERT ORIENTED X3 BREATHING WITH OXYGEN AT 2 LPM BY N/C NO SIGNS OF PAIN OR DISTRESS. IV SITE PATENT AND INTACT. BED IS LOW AND CALL LIGHT IS IN REACH.
[2021-05-14 20:00] VITALS: BP_SYST 130
[2021-05-14] MEDS: DEXAMETHASONE SOD PHOSPHATE 10 MG/ML VIAL IVP SCH (23:43)
--- NOTE | 2021-05-15 | NUR ---
PATIENT IS ASLEEP NO SIGNS OF PAIN OR DISTRESS. BEDS LOW AND CALL LIGHTS IN REACH.
--- NOTE | 2021-05-15 04:30 | NUR ---
PATIENTS ASLEEP COMFORTABLE NO SIGNS OF PAIN OR DISTRESS. BEDS LOW AND CALL LIGHT IS IN REACH.
[2021-05-15] MEDS: D5/0.45 NS 1,000 ML IV SCH ×2 (06:10→15:53)
[2021-05-15 06:27] LABS: BASOPHILS % (AUTO) 0.1 % (0.0-2.0); EOSINOPHILS % (AUTO) 0.1 % (0.0-4.0); HEMATOCRIT 38.7 % (36-54); HEMOGLOBIN 13.1 g/dL (14.0-18.0); LYMPHOCYTES # (AUTO) 0.5 K/uL (1.0-5.5); LYMPHOCYTES % (AUTO) 4.3 % (20.5-51.5); MEAN CORPUSCULAR HEMOGLOBIN 30 pg (27-31); MEAN CORPUSCULAR HGB CONC 34 % (32-36); MEAN CORPUSCULAR VOLUME 89 fL (79.0-98.0); MONOCYTES # (AUTO) 0.3 K/uL (0.0-1.0); MONOCYTES % (AUTO) 2.8 % (1.7-9.3); NEUTROPHILS # (AUTO) 10.1 K/uL (1.8-7.7); NEUTROPHILS % (AUTO) 92.7 % (40.0-70.0); PLATELET COUNT (AUTO) 469 K/uL (130-430); RED BLOOD CELL COUNT(AUTO) 4.33 MIL/uL (4.2-6.2); RED CELL DISTRIBUTION WIDTH 13.4 % (9.0-15.0); WHITE BLOOD COUNT (AUTO) 10.9 K/uL (4.8-10.8)
--- NOTE | 2021-05-15 06:49 | NUR ---
CLOSING NOTE PATIENT ASLEEP ALERT X4 WAKES UP TO NAME AND TACTILE STIMULI. BREATHING ROOM AIR NO SIGNS OF RESPIRATORY DISTRESS OR PAIN. PATIENT IS ON ISOLATION FOR COVID 19. IV SITE PATENT AND INTACT IN RFA 20 GAUGE. BED IS LOW AND CALL LIGHTS IN REACH. WILL ENDORSE TO NEXT SHIFT PATIENT PENDING LABS.
[2021-05-15 06:50] LABS: ANION GAP 6 (5-15); C-REACTIVE PROTEIN QUANT < 0.2 mg/dL (0-0.5); CALCIUM 8.8 mg/dL (8.4-11.0); CHLORIDE 99 mmol/L (98-107); CREATININE 0.92 mg/dL (0.55-1.30); GLUCOSE 128 mg/dL (70-99); POTASSIUM 4.5 mmol/L (3.5-5.1); SODIUM SERUM 132 mmol/L (136-145); UREA NITROGEN, BLOOD 26 mg/dL (8-21)
[2021-05-15 07:23] LABS: GFR AFRICAN AMERICAN 106 mL/min (>90)
[2021-05-15] MEDS: BUDESONIDE 0.5 MG/2 ML AMPUL.NEB INH SCH (07:28)
[2021-05-15 08:50] VITALS: BP_SYST 105
[2021-05-15] MEDS: ASCORBIC ACID 500 MG TABLET PO SCH ×2 (09:08→21:38)
[2021-05-15] MEDS: CHOLECALCIFEROL (VITAMIN D3) 5,000 UNIT TABLET PO SCH (09:08)
[2021-05-15] MEDS: ENOXAPARIN SODIUM 40 MG/0.4 ML SYRINGE SUBCUT SCH (09:13)
--- NOTE | 2021-05-15 09:40 | NUR ---
Opening note Patient is resting in bed A&Ox4 no complaint of pain or discomfort, no signs or symptoms of respiratory distress, IV is infusing no signs or symptoms of infiltration. Patient is tolerating 2L NC. Educated patient on plan of care, patient verbalized understanding. Bed is in lowest position call light within reach, droplet, fall and aspiration precautions are in place. Will continue to monitor.
[2021-05-15] MEDS: BARICITINIB -Non-Formulary 2 MG TABLET PO SCH (10:31)
[2021-05-15 12:01] LABS: ERYTHROCYTE SEDIMENTATION RATE 36 MM/HR (0-15)
[2021-05-15 12:04] VITALS: BP_SYST 141
[2021-05-15 12:13] VITALS: BP_SYST 141
--- NOTE | 2021-05-15 12:43 | NUR ---
Rn note Patient is able to ambulate in the room without assist. Tolerating well. Will continue to monitor.
[2021-05-15 16:14] VITALS: BP_SYST 115
--- NOTE | 2021-05-15 18:38 | NUR ---
Closing note Patient is resting in bed A&Ox4 no complaint of pain or discomfort, no signs or symptoms of respiratory distress, IV is infusing no signs or symptoms of infiltration. Patient is tolerating 2L NC. All needs were met. Bed is in lowest position call light within reach, droplet, fall and aspiration precautions are in place. Will endorse report to flight hostess.
--- NOTE | 2021-05-15 19:30 | NUR ---
OPENING NOTE PATIENT IS AWAKE ALERT ORIENTED X4 NO SIGNS OF RESPIRATORY DISTRESS OR PAIN BREATHING WITH OXYGEN AT 2 LPM BY N/C. PATIENT IS COMFORTABLE RESTING IN BED. BED IS LOW AND CALL LIGHTS IN REACH.
[2021-05-15 20:00] VITALS: BP_SYST 125
[2021-05-15] MEDS: DEXAMETHASONE SOD PHOSPHATE 10 MG/ML VIAL IVP SCH (21:39)
[2021-05-16] VITALS: BP_SYST 128
--- NOTE | 2021-05-16 | NUR ---
PATIENTS IS COMFORTABLE ASLEEP NO SIGNS OF RESPIRATORY DISTRESS OR PAIN. BED IS LOW AND CALL LIGHT IS WITHIN REACH.
[2021-05-16] MEDS: D5/0.45 NS 1,000 ML IV SCH ×2 (02:57→08:50)
--- NOTE | 2021-05-16 04:00 | NUR ---
PATIENT IS ASLEEP COMFORTABLE NO SIGNS OF PAIN OR DISTRESS. BED IS LOW AND CALL LIGHTS WITHIN REACH.
--- NOTE | 2021-05-16 06:35 | NUR ---
CLOSING NOTE PATIENT IS ASLEEP COMFORTABLE NO SIGNS OF PAIN OR DISTRESS. BREATHING VIA OXYGEN 2 LPM BY N/C NO RESPIRATORY DISTRESS. IV SITE PATENT AND INTACT ON RFA GAUGE 20. BED IS LOW AND CALL LIGHTS IN REACH. WILL ENDORSE TO DAY SHIFT PATIENT PENDING DISCHARGE COMMUNICATE WITH CASE MANAGEMENT FOR HOME HEALTH WITH OXYGEN ARRANGEMENTS TODAY.
[2021-05-16 06:53] LABS: BASOPHILS % (AUTO) 0.1 % (0.0-2.0); LYMPHOCYTES # (AUTO) 0.4 K/uL (1.0-5.5); LYMPHOCYTES % (AUTO) 5.2 % (20.5-51.5); MEAN CORPUSCULAR HEMOGLOBIN 31 pg (27-31); MEAN CORPUSCULAR HGB CONC 34 % (32-36); MEAN CORPUSCULAR VOLUME 89 fL (79.0-98.0); MONOCYTES # (AUTO) 0.2 K/uL (0.0-1.0); MONOCYTES % (AUTO) 2.5 % (1.7-9.3); NEUTROPHILS # (AUTO) 7.8 K/uL (1.8-7.7); NEUTROPHILS % (AUTO) 92.2 % (40.0-70.0); PLATELET COUNT (AUTO) 428 K/uL (130-430); RED BLOOD CELL COUNT(AUTO) 4.25 MIL/uL (4.2-6.2); RED CELL DISTRIBUTION WIDTH 13.7 % (9.0-15.0); WHITE BLOOD COUNT (AUTO) 8.5 K/uL (4.8-10.8)
[2021-05-16] MEDS: BUDESONIDE 0.5 MG/2 ML AMPUL.NEB INH SCH (07:36)
[2021-05-16 08:00] VITALS: BP_SYST 135
--- NOTE | 2021-05-16 08:00 | NUR ---
Initial Note Patient sitting up in bed, awake and oriented x 4. No pain or distress. Saturating 97% on 2 L via N/C. Uses urinal, ambulates to restroom as needed. Bed in lowest position and call light in reach.
[2021-05-16 08:08] LABS: ALANINE AMINOTRANSFERASE 77 U/L (12-78); ALBUMIN 2.7 g/dL (3.4-4.8); ANION GAP 6 (5-15); ASPARTATE AMINOTRANSFERASE 23 U/L (10-37); CALCIUM 8.9 mg/dL (8.4-11.0); CHLORIDE 101 mmol/L (98-107); CREATININE 1.01 mg/dL (0.55-1.30); GLUCOSE 201 mg/dL (70-99); POTASSIUM 4.9 mmol/L (3.5-5.1); SODIUM SERUM 137 mmol/L (136-145); TOTAL BILIRUBIN 0.5 mg/dL (0.0-1.0); UREA NITROGEN, BLOOD 25 mg/dL (8-21)
[2021-05-16] MEDS: CHOLECALCIFEROL (VITAMIN D3) 5,000 UNIT TABLET PO SCH (08:49)
[2021-05-16] MEDS: BARICITINIB -Non-Formulary 2 MG TABLET PO SCH (08:49)
[2021-05-16] MEDS: ASCORBIC ACID 500 MG TABLET PO SCH (08:50)
[2021-05-16 08:57] LABS: GFR AFRICAN AMERICAN 95 mL/min (>90)
[2021-05-16] MEDS: ENOXAPARIN SODIUM 40 MG/0.4 ML SYRINGE SUBCUT SCH (09:03)
[2021-05-16 09:48] LABS: C-REACTIVE PROTEIN QUANT < 0.2 mg/dL (0-0.5)
--- NOTE | 2021-05-16 10:31 | NUR ---
Referral for home health sent to [facility] [phone]
[2021-05-16 11:06] LABS: ERYTHROCYTE SEDIMENTATION RATE 28 MM/HR (0-15)
--- NOTE | 2021-05-16 12:00 | NUR ---
Notes Patient's oxygen saturation after ambulating on room air 89%. Notified PENNY William. Patient about to eat lunch. No pain or distress. Call light in reach and bed in lowest position, encouraged to call.
[2021-05-16 12:14] VITALS: BP_SYST 122
[2021-05-16] MEDS ORDERED: DEC4 PO (13:26)
[2021-05-16] MEDS ORDERED: APIX5TAB PO (13:26)
--- NOTE | 2021-05-16 13:50 | NUR ---
Notes Patient seen by Dr. Ruiz. Per MD, patient does not need home health. Patient's O2 saturation at rest 93% on room air. Denies shortness of breath, respirations 16. Patient wants to go home. Patient O2 saturation upon ambulating 89-90%. Will discharge per MD order.
[2021-05-16 14:00] VITALS: BP_SYST 122
[2021-05-16] MEDS ORDERED: NORMAL SALINE 5 ML DISP.SYRIN IVF SCH (14:00)
--- NOTE | 2021-05-16 15:00 | NUR ---
Discharge Patient Patient given medication reconciliation form and D/C instructions. Exit Care provided. Patient verbalized understanding. MD discussed with patient the results and treatment provided. Ambulatory with steady gait for discharge to home. Patient in stable condition, ID band removed. IV catheter removed, intact and dressing applied, no active bleeding. Rx of Decadron and Eliquis given. Patient educated on management of respiratory symptoms. All belongings sent with patient.
== END 2021-05-16 14:50 | disposition home health service (06) | DRG 871 ==
LOC: SED 19:20 → STU 21:48 → SMU 05-09 20:34 → STU 05-09 20:37
PROVIDERS: ADMIT Preventive Medicine Preventive Medicine/Occupational Environmental Medicine; ATTEND Preventive Medicine Preventive Medicine/Occupational Environmental Medicine
PROC: XW033E5 Introduction of Remdesivir Anti-infective into Peripheral Vein, Percutaneous Approach, New Technology Group 5 (ICD-10-PCS; principal; 2021-05-07)
DX: A41.9 Sepsis, unspecified organism (principal); J96.01 Acute respiratory failure with hypoxia; J12.82 Pneumonia due to coronavirus disease 2019; U07.1 COVID-19; E43 Unspecified severe protein-calorie malnutrition; J44.0 Chronic obstructive pulmonary disease with (acute) lower respiratory infection; E87.1 Hypo-osmolality and hyponatremia; R73.9 Hyperglycemia, unspecified; E88.09 Other disorders of plasma-protein metabolism, not elsewhere classified; D47.3 Essential (hemorrhagic) thrombocythemia; R53.81 Other malaise; D64.9 Anemia, unspecified; E66.9 Obesity, unspecified; Z88.6 Allergy status to analgesic agent; Z88.2 Allergy status to sulfonamides; Z79.899 Other long term (current) drug therapy; Z68.21 Body mass index [BMI] 21.0-21.9, adult; Z72.0 Tobacco use; Z79.01 Long term (current) use of anticoagulants
CPT/HCPCS: 36415; 36600; 71045; 71275; 76376; 80048; 80053; 81000; 82550; 82728; 82803-TC; 83615; 83880; 84484; 85025; 85379; 85384; 85610-TC; 85651-TC; 85730-TC; 86140; 87040-TC; 87086; 93005; 94640; 94760; 96365; 96367; 96372; 96375; 97112-GP; 97116-GP; 97530-GP; 99291; G0378; J0456; J0696; J1100; J1650; J7050; J7626; Q9967; U0003